=== PATIENT | female | born 1980 | race African-American/Black ===

== ENCOUNTER 2016-10-21 13:43 | Observation (INO) | payer MEDICAID ==
[~2016-10-21] VITALS: Ht 144.8 cm; Wt 56.7 kg
[2016-10-21 14:55] LABS: Basophils # (auto) 0 uL; Basophils % (auto) 0.1 % (0.0-2.0); CONDITION AutoValidated; Eosinophils # (auto) 0.1 uL; Eosinophils % (auto) 0.4 % (0.0-7.0); Hematocrit 43.6 % (36.0-46.0); Hemoglobin 14.7 g/dL (12.2-16.2); Lymphocytes # (auto) 1.5 uL; Lymphocytes % (auto) 10.8 % (10.0-50.0); Mean Corpuscular Hemoglobin 30.1 pg (28.0-32.0); Mean Corpuscular Hgb Conc. 33.8 g/dL (32.0-36.0); Mean Corpuscular Volume 89.1 fL (80.0-100.0); Mean Platelet Volume 7.6 fL (7.4-10.4); Monocytes # (auto) 0.6 uL; Monocytes % (auto) 4.5 % (0.0-12.0); Neutrophils # (auto) 11.9 uL; Neutrophils % (auto) 84.2 % (37.0-80.0); Platelet Count (auto) 325 10^3/uL (140-450); Red Cell Distribution Width 13.6 % (11.6-16.0); White Blood Cell 14.1 10^3/uL (4.4-10.8)
[2016-10-21 15:22] LABS: Albumin 4.3 g/dL (3.4-5.0); BUN/Creatinine Ratio 15.1; Bilirubin, Total 0.5 mg/dL (0.2-1.0); Calcium 8.9 mg/dL (8.5-10.1); Potassium 3.7 mmol/L (3.5-5.1); Total Protein 7.7 g/dL (6.4-8.2)
[2016-10-21 16:25] LABS: Urine Bilirubin Negative (Negative); Urine Color Yellow (Yellow); Urine Glucose Normal (Normal); Urine Ketone TRACE (Negative); Urine Mucus FEW (None Seen); Urine Nitrite Negative (Negative); Urine RBC 5 /hpf (0 - 4); Urine Squamous Epithelial Cell FEW /hpf (<5); Urine Urobilinogen Normal (Negative)
[2016-10-21 16:26] LABS: Urine Blood 2+ /uL (Negative)
[2016-10-21] MEDS ORDERED: SODIUM CHLORIDE 0.9% 1,000 ML IVB ONE (16:37)
[2016-10-21 17:04] LABS: INR 0.99 (0.9-1.15); Partial Thromboplastin Time 25.9 sec (22.64-33.71); Prothrombin Time 10.8 sec (9.37-12.3)
[2016-10-21] MEDS ORDERED: HYDROcodone-ACET 5/325MG TAB PO ONE (20:15)
[2016-10-21 21:27] VITALS: BP 154/91
== END 2016-10-21 21:48 | disposition home or self-care (01) | DRG 53 ==
LOC: EDBD 13:43 → ER 13:45 → OVERFLOW 16:39 → ER 21:43
PROVIDERS: ADMIT Family Medicine; ATTEND Family Medicine
DX: G40.909 Epilepsy, unspecified, not intractable, without status epilepticus (principal); I10 Essential (primary) hypertension; F41.9 Anxiety disorder, unspecified; R51 Headache; Z82.49 Family history of ischemic heart disease and other diseases of the circulatory system; Z90.49 Acquired absence of other specified parts of digestive tract
CPT/HCPCS: 36415; 70450; 80053; 80185; 80307; 81001; 81025; 83735; 85025; 85610; 85730; 96360; 99285; G0378; J7030

== ENCOUNTER 2018-06-09 16:35 | Emergency (ER) | payer MEDICAID ==
[~2018-06-09] VITALS: Ht 144.8 cm; Wt 68.0 kg
[2018-06-09 17:22] LABS: Basophils # (auto) 0 uL; Basophils % (auto) 0.4 % (0.0-2.0); Eosinophils # (auto) 0.1 uL; Eosinophils % (auto) 0.8 % (0.0-7.0); Hematocrit 41.5 % (36.0-46.0); Hemoglobin 13.8 g/dL (12.2-16.2); Lymphocytes # (auto) 1.6 uL; Mean Corpuscular Hemoglobin 29.9 pg (28.0-32.0); Mean Corpuscular Hgb Conc. 33.3 g/dL (32.0-36.0); Mean Corpuscular Volume 89.7 fL (80.0-100.0); Monocytes # (auto) 0.6 uL; Monocytes % (auto) 4.7 % (0.0-12.0); Neutrophils # (auto) 9.9 uL; Neutrophils % (auto) 81.1 % (37.0-80.0); Nucleated Red Blood Cells % 0.1 %; Platelet Count (auto) 298 10^3/uL (140-450); Red Blood Cells 4.63 10^6/uL (4.0-5.20); Red Cell Distribution Width 14.3 % (11.8-14.3); White Blood Cell 12.2 10^3/uL (4.4-10.8)
[2018-06-09 17:31] LABS: Urine Bacteria FEW /hpf (None Seen); Urine Blood TRACE /uL (Negative); Urine Mucus FEW (None Seen); Urine WBC <1 /hpf (0 - 5)
[2018-06-09 17:34] LABS: Albumin 4.3 g/dL (3.4-5.0); Calcium 9.3 mg/dL (8.5-10.1); Potassium 4.2 mmol/L (3.5-5.1)
[2018-06-09 17:38] LABS: BUN/Creatinine Ratio 10.1; Bilirubin, Total 0.4 mg/dL (0.2-1.0); Total Protein 7.9 g/dL (6.4-8.2)
[2018-06-09] MEDS ORDERED: MORPHINE SULFATE 4 MG/ML SYR/VIAL IV ONE (19:30)
[2018-06-09] MEDS ORDERED: ONDANSETRON HCL 4 MG/2 ML VIAL IV ONE (19:30)
[2018-06-09 20:46] VITALS: BP 151/88
== END 2018-06-09 21:36 | disposition home or self-care (01) ==
LOC: ER 16:40
DX: S00.83XA Contusion of other part of head, initial encounter (principal); R51 Headache; I10 Essential (primary) hypertension; F41.9 Anxiety disorder, unspecified; G40.909 Epilepsy, unspecified, not intractable, without status epilepticus; W22.01XA Walked into wall, initial encounter; Y93.89 Activity, other specified; Y92.89 Other specified places as the place of occurrence of the external cause; Y99.8 Other external cause status
CPT/HCPCS: 36415; 70450; 80053; 81001; 81025; 82962; 85025; 96374; 96375; 99284; J2270; J2405

== ENCOUNTER 2019-06-25 18:25 | Emergency (ER) | payer MEDICAID ==
[~2019-06-25] VITALS: Ht 144.8 cm; Wt 59.4 kg
[2019-06-25 19:33] LABS: Basophils # (auto) 0.1 uL; Basophils % (auto) 0.6 % (0.0-2.0); Eosinophils # (auto) 0.2 uL; Eosinophils % (auto) 1.6 % (0.0-7.0); Hematocrit 43.9 % (36.0-46.0); Hemoglobin 14.6 g/dL (12.2-16.2); Lymphocytes # (auto) 3.3 uL; Lymphocytes % (auto) 26.9 % (10.0-50.0); Mean Corpuscular Hemoglobin 30.4 pg (28.0-32.0); Mean Corpuscular Hgb Conc. 33.3 g/dL (32.0-36.0); Mean Corpuscular Volume 91.3 fL (80.0-100.0); Monocytes # (auto) 0.7 uL; Neutrophils % (auto) 64.9 % (37.0-80.0); Nucleated Red Blood Cells % 0.1 %; Platelet Count (auto) 282 10^3/uL (140-450); Red Blood Cells 4.81 10^6/uL (4.0-5.20); Red Cell Distribution Width 13.8 % (11.8-14.3); White Blood Cell 12.3 10^3/uL (4.4-10.8)
[2019-06-25 19:38] LABS: Urine Bacteria NONE SEEN /hpf (None Seen); Urine Blood TRACE /uL (Negative); Urine Mucus FEW (None Seen); Urine Specific Gravity 1.021 (1.001-1.035); Urine WBC 2 /hpf (0 - 5)
[2019-06-25 19:50] LABS: Albumin 4.1 g/dL (3.4-5.0); Potassium 3.8 mmol/L (3.5-5.1)
[2019-06-25 19:53] LABS: BUN/Creatinine Ratio 13.2; Bilirubin, Total 0.4 mg/dL (0.2-1.0); Total Protein 7.5 g/dL (6.4-8.2)
[2019-06-25 21:12] VITALS: BP 139/85
== END 2019-06-25 21:21 | disposition home or self-care (01) ==
LOC: ER 18:25
DX: K57.92 Diverticulitis of intestine, part unspecified, without perforation or abscess without bleeding (principal); I10 Essential (primary) hypertension; Z32.02 Encounter for pregnancy test, result negative; Z90.49 Acquired absence of other specified parts of digestive tract; Z88.8 Allergy status to other drugs, medicaments and biological substances
CPT/HCPCS: 36415; 74176; 80053; 81001; 81025; 85025

== ENCOUNTER → 2019-07-12 | Emergency (ER) | payer MEDICAID ==
[~2019-07-12] VITALS: Ht 144.8 cm; Wt 54.4 kg
[2019-07-12 15:07] LABS: Urine Bacteria FEW /hpf (None Seen); Urine Blood 3+ /uL (Negative); Urine Specific Gravity 1.012 (1.001-1.035); Urine WBC 2 /hpf (0 - 5)
[2019-07-12 15:21] LABS: Basophils # (auto) 0 10 ^3/uL (0-0.2); Basophils % (auto) 0.2 % (0.0-2.0); Eosinophils # (auto) 0.1 10 ^3/uL (0-0.8); Eosinophils % (auto) 1.9 % (0.0-7.0); Hematocrit 40.6 % (36.0-46.0); Hemoglobin 13.9 g/dL (12.2-16.2); Lymphocytes # (auto) 2.4 10 ^3/uL (0.4-5.4); Lymphocytes % (auto) 32.3 % (10.0-50.0); Mean Corpuscular Hemoglobin 30.9 pg (28.0-32.0); Mean Corpuscular Hgb Conc. 34.1 g/dL (32.0-36.0); Mean Corpuscular Volume 90.4 fL (80.0-100.0); Monocytes # (auto) 0.4 10 ^3/uL (0-1.3); Monocytes % (auto) 5.2 % (0.0-12.0); Neutrophils # (auto) 4.4 10 ^3/uL (1.6-8.6); Neutrophils % (auto) 60.4 % (37.0-80.0); Platelet Count (auto) 282 10^3/uL (140-450); Red Blood Cells 4.49 10^6/uL (4.0-5.20); Red Cell Distribution Width 13.5 % (11.8-14.3); White Blood Cell 7.3 10^3/uL (4.4-10.8)
[2019-07-12 15:23] LABS: Alcohol, Urine < 3.0 mg/dL (0-5); Amphetamine Screen, Urine NEGATIVE (NEGATIVE); Barbiturate Scree,Urine NEGATIVE (NEGATIVE); Benzodiazephine Screen, Urine NEGATIVE (NEGATIVE); Cannabinoid Screen, Urine POSITIVE (NEGATIVE); Cocaine Screen, Urine NEGATIVE (NEGATIVE); Phencyclidine Screen, Urine NEGATIVE (NEGATIVE)
[2019-07-12 15:30] LABS: Opiate Scree,Urine NEGATIVE (NEGATIVE)
[2019-07-12 15:40] LABS: Albumin 3.8 g/dL (3.4-5.0); Anion Gap 6 (5-15); Blood Urea Nitrogen 8 mg/dL (7-18); Calcium 8.7 mg/dL (8.5-10.1); Carbon Dioxide 25 mmol/L (21-32); Chloride 109 mmol/L (98-107); Glucose 89 mg/dL (74-106); Potassium 3.6 mmol/L (3.5-5.1); Sodium 140 mmol/L (136-145)
[2019-07-12 15:45] LABS: Alanine Aminotransferase 11 U/L (13-56); Alkaline Phosphatase 49 U/L (45-117); Aspartate Aminotransferase 14 U/L (15-37); BUN/Creatinine Ratio 11.4; Bilirubin, Total 0.3 mg/dL (0.2-1.0); GFR African American 120 mL/min; GFR Non-African American 100 mL/min; Total Protein 7.2 g/dL (6.4-8.2)
[2019-07-12 16:27] VITALS: BP 140/84
== END | disposition home or self-care (01) ==
LOC: ER 14:00
DX: F41.9 Anxiety disorder, unspecified (principal); F12.10 Cannabis abuse, uncomplicated; I10 Essential (primary) hypertension; Z90.49 Acquired absence of other specified parts of digestive tract; Z88.8 Allergy status to other drugs, medicaments and biological substances
CPT/HCPCS: 36415; 70450; 71046; 80053; 80307; 81001; 84443; 84484; 85025; 93005

== ENCOUNTER 2019-10-20 07:12 | Emergency (ER) | payer MEDICAID ==
[~2019-10-20] VITALS: Ht 144.8 cm; Wt 54.4 kg
[2019-10-20] MEDS ORDERED: HYDROcodone-ACET 10/325MG TAB PO ONE (07:45)
[2019-10-20 08:00] LABS: Basophils # (auto) 0 10 ^3/uL (0-0.2); Basophils % (auto) 0.2 % (0.0-2.0); Eosinophils # (auto) 0.1 10 ^3/uL (0-0.8); Eosinophils % (auto) 0.4 % (0.0-7.0); Hematocrit 41.9 % (36.0-46.0); Hemoglobin 13.9 g/dL (12.2-16.2); Lymphocytes # (auto) 1.1 10 ^3/uL (0.4-5.4); Lymphocytes % (auto) 7.8 % (10.0-50.0); Mean Corpuscular Hemoglobin 30.1 pg (28.0-32.0); Mean Corpuscular Hgb Conc. 33.1 g/dL (32.0-36.0); Mean Corpuscular Volume 90.9 fL (80.0-100.0); Monocytes # (auto) 0.4 10 ^3/uL (0-1.3); Monocytes % (auto) 3.1 % (0.0-12.0); Neutrophils # (auto) 12.7 10 ^3/uL (1.6-8.6); Neutrophils % (auto) 88.5 % (37.0-80.0); Nucleated Red Blood Cells % 0.1 %; Platelet Count (auto) 260 10^3/uL (140-450); Red Blood Cells 4.61 10^6/uL (4.0-5.20); Red Cell Distribution Width 13.8 % (11.8-14.3); White Blood Cell 14.3 10^3/uL (4.4-10.8)
[2019-10-20 08:21] LABS: Albumin 3.9 g/dL (3.4-5.0); Potassium 4.3 mmol/L (3.5-5.1)
[2019-10-20 08:27] LABS: BUN/Creatinine Ratio 13.9; Bilirubin, Total 0.3 mg/dL (0.2-1.0); Total Protein 7.4 g/dL (6.4-8.2)
[2019-10-20 08:34] LABS: Urine Bacteria FEW /hpf (None Seen); Urine Blood TRACE /uL (Negative); Urine Specific Gravity 1.013 (1.001-1.035); Urine WBC 2 /hpf (0 - 5)
[2019-10-20] MEDS ORDERED: ONDANSETRON HCL 4 MG/2 ML VIAL IV ONE (09:00)
[2019-10-20 09:57] VITALS: BP 124/78
== END 2019-10-20 10:59 | disposition home or self-care (01) ==
LOC: EDBD 07:12 → ER 07:12
DX: G40.909 Epilepsy, unspecified, not intractable, without status epilepticus (principal); F41.9 Anxiety disorder, unspecified; F12.10 Cannabis abuse, uncomplicated; Z90.49 Acquired absence of other specified parts of digestive tract
CPT/HCPCS: 36415; 70450; 80053; 81001; 82542; 85025; 96365; 96375; 99284; J1953; J2405; J7060

== ENCOUNTER 2020-01-19 14:38 | Emergency (ER) | payer MEDICAID ==
[~2020-01-19] VITALS: Ht 147.3 cm; Wt 57.6 kg
[2020-01-19 15:16] VITALS: BP 115/76
[2020-01-19 15:40] LABS: Basophils # (auto) 0 10 ^3/uL (0-0.2); Basophils % (auto) 0.1 % (0.0-2.0); Eosinophils # (auto) 0.1 10 ^3/uL (0-0.8); Hematocrit 40.2 % (36.0-46.0); Hemoglobin 13.2 g/dL (12.2-16.2); Lymphocytes # (auto) 2.3 10 ^3/uL (0.4-5.4); Lymphocytes % (auto) 15.9 % (10.0-50.0); Mean Corpuscular Hemoglobin 29.7 pg (28.0-32.0); Mean Corpuscular Hgb Conc. 32.7 g/dL (32.0-36.0); Mean Corpuscular Volume 90.8 fL (80.0-100.0); Monocytes # (auto) 0.8 10 ^3/uL (0-1.3); Monocytes % (auto) 5.4 % (0.0-12.0); Neutrophils % (auto) 77.6 % (37.0-80.0); Platelet Count (auto) 310 10^3/uL (140-450); Red Blood Cells 4.43 10^6/uL (4.0-5.20); Red Cell Distribution Width 13.2 % (11.8-14.3); White Blood Cell 14.2 10^3/uL (4.4-10.8)
[2020-01-19 15:51] LABS: Albumin 3.9 g/dL (3.4-5.0); BUN/Creatinine Ratio 11.9; Calcium 9.2 mg/dL (8.5-10.1); Potassium 3.8 mmol/L (3.5-5.1)
[2020-01-19 15:53] LABS: Bilirubin, Total 0.4 mg/dL (0.2-1.0); Total Protein 7.4 g/dL (6.4-8.2)
[2020-01-19] MEDS ORDERED: ONDANSETRON HCL 4 MG/2 ML VIAL IV ONE (16:30)
[2020-01-19] MEDS ORDERED: MORPHINE SULFATE 4 MG/ML SYR/VIAL IV ONE (16:30)
[2020-01-19] MEDS ORDERED: MORPHINE SULF INJ 2 MG/ML SYRINGE 1ML IV ONE (17:00)
[2020-01-19 17:10] LABS: Urine Bacteria FEW /hpf (None Seen); Urine Blood Negative /uL (Negative); Urine Specific Gravity 1.009 (1.001-1.035); Urine WBC 1 /hpf (0 - 5)
== END 2020-01-19 17:00 | disposition left against medical advice (07) ==
LOC: ER 14:38
DX: O15.9 Eclampsia, unspecified as to time period (principal); F41.9 Anxiety disorder, unspecified; J45.909 Unspecified asthma, uncomplicated; Z90.49 Acquired absence of other specified parts of digestive tract; Z3A.01 Less than 8 weeks gestation of pregnancy
CPT/HCPCS: 36415; 80053; 81001; 81025; 84702; 85025

== ENCOUNTER 2020-11-12 02:22 | Emergency (ER) | payer MEDICAID ==
[~2020-11-12] VITALS: Ht 152.4 cm; Wt 59.0 kg
[2020-11-12 02:30] VITALS: BP 167/69
== END 2020-11-12 04:21 | disposition left against medical advice (07) ==
LOC: EDBD 02:22 → ER 02:22 → EDUNIT# 02:22 → ER 04:21
DX: S00.93XA Contusion of unspecified part of head, initial encounter (principal); S00.91XA Abrasion of unspecified part of head, initial encounter; R51.9 Headache, unspecified; Z53.21 Procedure and treatment not carried out due to patient leaving prior to being seen by health care provider; Y08.89XA Assault by other specified means, initial encounter; Y93.9 Activity, unspecified; Y92.89 Other specified places as the place of occurrence of the external cause; Y99.8 Other external cause status
CPT/HCPCS: 70450; 72040

== ENCOUNTER 2022-11-28 17:36 | Emergency (ER) | payer MEDICAID ==
[~2022-11-28] VITALS: Ht 144.8 cm; Wt 76.0 kg
[2022-11-28 17:36] VITALS: BP 151/83; PULSE 109; RESP 16; O2SAT 97
[~2022-11-28 17:36] MED LIST: ALBU108A5 IN; CLON1TAB PO; LEVO500T31 PO; METR500T PO; OXCA600T3 PO
== END 2022-11-28 19:47 | disposition left against medical advice (07) ==
LOC: ER 17:36
DX: S09.92XA Unspecified injury of nose, initial encounter (principal); Z53.21 Procedure and treatment not carried out due to patient leaving prior to being seen by health care provider; W22.8XXA Striking against or struck by other objects, initial encounter; Y93.89 Activity, other specified; Y92.89 Other specified places as the place of occurrence of the external cause; Y99.8 Other external cause status
CPT/HCPCS: 70486

== ENCOUNTER 2024-05-25 20:02 | Emergency (ER) | payer MEDICARE, MEDICAID ==
[~2024-05-25] VITALS: Ht 144.8 cm; Wt 78.2 kg
[~2024-05-25 20:02] MED LIST changes: +CLON-1004 PO; -CLON1TAB PO
[2024-05-25] MEDS ORDERED: COROSUS LEFT EAR (21:26)
[2024-05-25] MEDS ORDERED: METH4PAK PO (21:26)
--- NOTE | 2024-05-25 21:26 | ED.PDOC ---
Eye-HPI HPI Comments PT C/O LEFT EARACHE FOR 2 WEEKS WITH DECREASED HEARING. DENIES ANY DRAINAGE. WAS SEEN AT URGENT CARE, GIVEN AN ANTIBIOTIC SHOT ON SUNDAY. PT WAS SEEN PRIOR TO THAT, PRESCRIBED AMOXICILLIN, COMPLETED 5 OF 10 DAYS, LAST DOSE ON SUNDAY. Chief Complaint: Earache Time Seen by MD: 20:15 Primary Care Provider: ROSA Reviewed Notes: Nurses Notes, Medications, Allergies Allergies: Coded Allergies: Medroxyprogesterone (Verified Allergy, Unknown, 04/13/15) Metoclopramide (Verified Allergy, Unknown, 04/13/15) Morphine (Verified Allergy, Unknown, 11/12/20) Home Meds Active Scripts Methylprednisolone (Medrol Dosepak) 4 Mg Elijah, 4 MG PO UD for 6 Days, #21 TAB UAD Prov:SANTANA URIOSTEGUI 05/25/24 Bwarugge-Wnfjkjdir-Br (Otic) (Cortisporin Otic Susp) [address], 4 DROP LEFT EAR TID for 10 Days, #10 ML Prov:SANTANA URIOSTEGUI 05/25/24 Metronidazole (Flagyl) 500 Mg Tab, 500 MG PO TID, #21 MG Prov:CAMILLE HOGAN MD 07/27/21 Levofloxacin (Levaquin) 500 Mg Tab, 500 MG PO DAILY, #7 MG Prov:CAMILLE HOGAN MD 07/27/21 Reported Medications Albuterol Sulfate (Albuterol Sulfate Hfa) 108 Mcg/Act Aer, 108 MCG IN, AER 07/26/21 Clonazepam (Klonopin) 1 Mg Tab, 1 TAB PO, #90 TAB 1 Refill 07/26/21 Oxcarbazepine (Trileptal) 600 Mg Tab, 600 MG PO BID for 30 Days, MG 07/26/21 Mode of Arrival: Ambulatory Past Medical History PAST MEDICAL HISTORY: Anxiety, Asthma, Seizures Surgical History: Cholecystectomy 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 Family History Family History: Reviewed,noncontributory to illness, Family hx of heart deric, Family hx of HTN Social History Smoker: Non-Smoker Alcohol: Occasionally Drugs: Marijuana Lives In: Home Constitutional: denies: chills, diaphoresis, fatigue, fever, malaise, sweats, weakness, others EENTM: reports: ear pain (LEFT ); denies: blurred vision, double vision, ear bleeding, ear discharge, ear drainage, ear ringing, eye pain, eye redness, hearing loss, mouth pain, mouth swelling, nasal discharge, nose bleeding, nose congestion, nose pain, photophobia, tearing, throat pain, throat swelling, voice changes, others Respiratory: denies: cough, hemoptysis, orthopnea, SOB at rest, shortness of breath, SOB with excertion, stridor, wheezing, others Cardiovascular: denies: chest pain, dizzy spells, diaphoresis, Dyspnea on exertion, edema, irregular heart beat, left arm pain, lightheadedness, palpitations, PND, syncope, others Gastrointestinal: denies: abdomen distended, abdominal pain, blood streaked bowels, constipated, diarrhea, dysphagia, difficulty swallowing, hematemesis, melena, nausea, poor appetite, poor fluid intake, rectal bleeding, rectal pain, vomiting, others Genitourinary: denies: abnormal vagina bleeding, burning, dyspareunia, dysuria, flank pain, frequency, hematuria, incontinence, pain, , vagina discharge, urgency, others Neurological: denies: dizziness, fainting, headache, left sided numbness, left sided weakness, numbness, paresthesia, pre-existing deficit, right sided numbness, right sided weakness, seizure, speech problems, tingling, tremors, weakness, others Musculoskeletal: denies: back pain, gout, joint pain, joint swelling, muscle pain, muscle stiffness, neck pain, others Integumetry: denies: bruises, change in color, change in hair/nails, dryness, laceration, lesions, lumps, rash, wounds, others Allergic/Immunocompromised: denies: Difficulty Healing, Frequent Infections, Hives, Itching, others Hematologic/Lymphatic: denies: anemia, blood clots, easy bleeding, easy bruising, swollen glands, others Endocrine: denies: excessive hunger, excessive sweating, excessive thirst, excessive urination, flushing, intolerance to cold, intolerance to heat, unexplained weight gain, unexplained weight loss, others Psychiatric: denies: anxiety, bipolar disorder, depression, hopeless, panic disorder, schizophrenia, sleepless, suicidal, others Physical Exam General Appearance: No Apparent Distress, Normal HEENT: Pharynx Normal, TMs Normal, Other (LEFT EAR CANAL EDEMATOUS HAND ERYTHEMIC. TM WITH NOTED AIR BUBBLES AND FLUID ERYTHEMA OR BULGING. INTACT) Neck: Full Range of Motion, Non-Tender Respiratory: Lungs Clear, No Respiratory Distress, Normal Breath Sounds Cardiovascular: No Murmur, Normal Peripheral Pulses, Regular Rate/Rhythm Breast Exam: Deferred Gastrointestinal: Non Tender, Soft Genitalia: Deferred Pelvic: Deferred Rectal: Deferred Extremities: Normal capillary refill, Normal inspection, Normal range of motion, Non-tender, No pedal edema Musculoskeletal : Apperance: Normal Neurologic: Alert, chemist internship II-XII nml as Tested, No Motor Deficits, Normal Affect, Normal Mood, No Sensory Deficits Cerebellar Function: Normal Reflexes: Normal Skin: Dry, Normal Color, Warm Lymphatic: No Adenopathy Was a procedure done? Was a procedure done?: No EENT DIFF Eye: N/A Ear: Cerumen Impaction, Foreign Body, Otitis Externa, Barotrauma, Otitis Media, Perforation X-Ray, Labs, Meds, VS Vital Signs Date Time Temp Pulse Resp B/P (MAP) Pulse Ox O2 Delivery O2 Flow Rate FiO2 05/25/24 21:40 87 19 99 Room Air 05/25/24 21:40 99.5 87 19 160/94 (116) 99 99.5 05/25/24 20:30 99.5 91 18 167/88 (114) 97 X-Ray, Labs, Meds, VS Comment LIKELY BACTERIAL. LIKELY SECONDARY TO YOUR EUSTACHIAN TUBE DYSFUNCTION. PATIENT GIVEN DECADRON 10 MG IM. START TRIAL OF ANTIBIOTIC DROPS AND MEDROL DOSEPAK. ADVISED TO FOLLOW UP WITH HER PCP FOR CONTINUED SYMPTOMS CONSIDER REFERRAL TO ENT. REST INCREASE P.O. FLUIDS WITH ELECTROLYTES. AVOID UNDER WATER ACTIVITIES WHILE WITH INFECTION. ER RETURN PRECAUTIONS GIVEN PATIENT INDICATED UNDERSTANDING AGREES WITH DISCHARGE CARE PLAN. Time of 1ST Reevaluation: 21:24 Reevaluation 1ST: Improved Patient Education/Counseling: Diagnosis, Treatment, Prognosis, Need For Follow Up Family Education/Counseling: Diagnosis, Treatment, Prognosis, Need For Follow Up Departure 1 Departure Time of Disposition: 21:24 Impression: Primary Impression: Otitis externa Qualified Codes: H60.62 - Unspecified chronic otitis externa, left ear Disposition: HOME / SELF CARE / HOMELESS Condition: Stable e-Prescriptions Methylprednisolone (Medrol Dosepak) 4 Mg Elijah 4 MG PO UD for 6 Days, #21 TAB UAD Prov: SANTANA URIOSTEGUI 05/25/24 Osxmmmtk-Lwftnovnu-Yf (Otic) (Cortisporin Otic Susp) [address] 4 DROP LEFT EAR TID for 10 Days, #10 ML Prov: SANTANA URIOSTEGUI 05/25/24 Discharged With: Spouse Critical Care Note Critical Care Time?: No Stability Stability form required: No SANTANA URIOSTEGUI May 25, 2024 21:26
[2024-05-25 21:40] VITALS: BP 160/94; PULSE 87; RESP 19; TEMP 99.5; O2SAT 99
[2024-05-25] MEDS: DexAMETHasone SOD PHOS 10MG/1ML VIAL INJ IM ONE (21:59)
[2024-05-25] MEDS: KETOROLAC TROMETH 60MG/2ML VIAL IM ONE (21:59)
== END 2024-05-25 22:20 | disposition home or self-care (01) ==
LOC: ER 20:02
DX: H60.92 Unspecified otitis externa, left ear (principal); F41.9 Anxiety disorder, unspecified; J45.909 Unspecified asthma, uncomplicated; F15.90 Other stimulant use, unspecified, uncomplicated; Z90.49 Acquired absence of other specified parts of digestive tract; Z88.5 Allergy status to narcotic agent; Z79.899 Other long term (current) drug therapy
CPT/HCPCS: 96372; 99284; J1100; J1885

== ENCOUNTER 2024-06-24 11:25 | Emergency (ER) | payer MEDICARE, MEDICAID ==
[~2024-06-24] VITALS: Ht 157.5 cm; Wt 72.7 kg
[2024-06-24 13:33] VITALS: BP 135/98; PULSE 89; RESP 16; TEMP 98.4; O2SAT 100
[2024-06-24] MEDS ORDERED: CEPH500C PO (14:28)
[2024-06-24] MEDS ORDERED: IBUP1TAB5 PO (14:28)
--- NOTE | 2024-06-24 14:28 | ED.PDOC ---
HPI Comments 44 year old presents for laceration to the L knee after mechanical fall Lost her footing chasing her cat. Sustained lac to the left knee lac 7 cm Chief Complaint: Laceration Time Seen by MD: 11:59 Primary Care Provider: ROSA Reviewed Notes: Nurses Notes, Medications, Allergies Allergies: Coded Allergies: Medroxyprogesterone (Verified Allergy, Unknown, 04/13/15) Metoclopramide (Verified Allergy, Unknown, 04/13/15) Morphine (Verified Allergy, Unknown, 11/12/20) Home Meds Active Scripts Ibuprofen Micronized (Ibuprofen) 600 Mg Tab, 600 MG PO TID for 10 Days, #30 TAB 0 Refills Prov:FATOU MANLEY AUTOMATIC EMBROIDERY MACHINE TENDER 06/24/24 Cephalexin Monohydrate (Cephalexin) 500 Mg Cap, 1 CAP PO QID for 5 Days, #20 CAP 0 Refills Prov:FATOU MANLEY AUTOMATIC EMBROIDERY MACHINE TENDER 06/24/24 Metronidazole (Flagyl) 500 Mg Tab, 500 MG PO TID, #21 MG Prov:CAMILLE HOGAN MD 07/27/21 Levofloxacin (Levaquin) 500 Mg Tab, 500 MG PO DAILY, #7 MG Prov:CAMILLE HOGAN MD 07/27/21 Reported Medications Albuterol Sulfate (Albuterol Sulfate Hfa) 108 Mcg/Act Aer, 108 MCG IN, AER 07/26/21 Clonazepam (Klonopin) 1 Mg Tab, 1 TAB PO, #90 TAB 1 Refill 07/26/21 Oxcarbazepine (Trileptal) 600 Mg Tab, 600 MG PO BID for 30 Days, MG 07/26/21 Information Source: Patient Mode of Arrival: EMS Complexity: Intermediate Laceration Length (cm): 7 Past Medical History PAST MEDICAL HISTORY: Anxiety, Asthma, Seizures Surgical History: Cholecystectomy 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 Family History Family History: Reviewed,noncontributory to illness, Family hx of heart deric, Family hx of HTN Social History Smoker: Non-Smoker Alcohol: Occasionally Drugs: Marijuana Lives In: Home All Other Systems: Reviewed and Negative (per hpi) Physical Exam General Appearance: No Apparent Distress, Normal HEENT: Normal ENT Inspection, Pharynx Normal, TMs Normal Neck: Full Range of Motion, Non-Tender, Normal, Normal Inspection Respiratory: Chest Non-Tender, Lungs Clear, No Accessory Muscle Use, No Respiratory Distress, Normal Breath Sounds Cardiovascular: No Edema, No JVD, No Murmur, No Gallop, Normal Peripheral Pulses, Regular Rate/Rhythm Breast Exam: Deferred Gastrointestinal: No Organomegaly, Non Tender, No Pulsatile Mass, Normal Bowel Sounds, Soft Genitalia: Deferred Pelvic: Deferred Rectal: Deferred Extremities: No calf tenderness, Normal capillary refill, Normal inspection, Normal range of motion, Non-tender, No pedal edema Musculoskeletal : Apperance: Normal Neurologic: Alert, staff counsel II-XII nml as Tested, No Motor Deficits, Normal Affect, Normal Mood, No Sensory Deficits Cerebellar Function: Normal Reflexes: Normal Skin: Dry, Normal Color, Warm Lymphatic: No Adenopathy Was a procedure done? Was a procedure done?: Yes Sedation Sedation?: No Laceration Repair : Location left knee Length 7 Anesthetic: Lidocaine Laceration Repair Prep: Saline, Betadine Laceration Repair Wound Comple: epidermis/dermis repair Laceration Repair: Size (4-0), Simple, Bacitracin, Non-adherent gauze, Gauze Informed consent obtained: Yes Risks, benefits, and alternati: Yes Differential diagnosis Generic Laceration: Abrasion/Contusion, Laceration, Avulsion X-Ray, Labs, Meds, VS Vital Signs Date Time Temp Pulse Resp B/P (MAP) Pulse Ox O2 Delivery O2 Flow Rate FiO2 06/24/24 13:33 98.4 89 16 135/98 (110) 100 98.4 06/24/24 13:33 89 16 100 Room Air 06/24/24 11:27 98.4 94 16 155/104 (121) 100 Current Medications Medications (Trade) Dose Ordered Sig/Osiris Route Start Time Stop Time Status Last Admin Acetaminophen/ Hydrocodone Bitart (Empire 5/325MG Tab) 1 tab ONCE ONCE PO 06/24/24 14:30 06/24/24 14:37 DC 06/24/24 14:40 Neomycin/ Polymyxin/ Bacitracin (Triple Antibiotic) 1 applic ONCE ONCE TOP 06/24/24 14:45 06/24/24 14:47 DC 06/24/24 14:41 X-Ray, Labs, Meds, VS Comment The skin edges of the laceration were infiltrated with 1% lidocaine The skin surrounding the laceration was scrubbed with Betadine soaked sterile gauze The laceration was irrigated under high-pressure with a 60 mL syringe A total of 1L sterile water was used. Including diluted Betadine solution The laceration was prepped in sterile fashion with sterile drapes On examination under direct light, there was no foreign body seen The laceration was repaired in simple interrupted technique There was no continuing bleeding on repair. There were no complications related to repair Antibiotics rx * Tetanus updated Education and follow-up instructions provided Wound check in 2 days Return sooner for signs of infection such as fevers, increased pain, redness, green, yellow discharge, or any concerns Keep wound dry for 24 to 48 hours; dry dressing may be changed Protect from sunlight and keep area clean and dry. Use soap and water if it gets dirty High risk of possible scarring and education provided on ways to minimize scarring after wound heals Also provided education on possible complications post procedure including wound dehiscence, infection, etc. Time of 1ST Reevaluation: 14:00 Reevaluation 1ST: Improved Patient Education/Counseling: Diagnosis, Treatment Family Education/Counseling: Diagnosis, Treatment Departure 1 Departure Time of Disposition: 14:26 Impression: Primary Impression: Knee laceration Qualified Codes: S81.012A - Laceration without foreign body, left knee, initial encounter Disposition: HOME / SELF CARE / HOMELESS Condition: Stable e-Prescriptions Ibuprofen Micronized (Ibuprofen) 600 Mg Tab 600 MG PO TID for 10 Days, #30 TAB 0 Refills Prov: FATOU MANLEY NP 06/24/24 Cephalexin Monohydrate (Cephalexin) 500 Mg Cap 1 CAP PO QID for 5 Days, #20 CAP 0 Refills Prov: FATOU MANLEY NP 06/24/24 Critical Care Note Critical Care Time?: No Stability Stability form required: No Heart Score Heart Score: Heart Score Response (Comments) Value History N/A 0 EKG N/A 0 Age N/A 0 Risk Factors N/A 0 Troponin N/A 0 Total 0 FATOU MANLEY NP Jun 24, 2024 14:28
[2024-06-24] MEDS ORDERED: NEOMYCIN-BACITRACIN-POLYM UNITDOSE PKG TOP OINT TOP ONE (14:30)
[2024-06-24] MEDS: HYDROcodone-ACET 5/325MG TAB PO ONE (14:40)
[2024-06-24] MEDS: NEOMYCIN-BACITRACIN-POLYM UNITDOSE PKG TOP OINT TOP ONE (14:41)
== END 2024-06-24 14:47 | disposition home or self-care (01) ==
LOC: EDBD 11:25 → ER 11:34
DX: S81.012A Laceration without foreign body, left knee, initial encounter (principal); J45.909 Unspecified asthma, uncomplicated; F41.9 Anxiety disorder, unspecified; Z90.49 Acquired absence of other specified parts of digestive tract; Z79.1 Long term (current) use of non-steroidal anti-inflammatories (NSAID); Z79.899 Other long term (current) drug therapy; Z88.5 Allergy status to narcotic agent; W18.39XA Other fall on same level, initial encounter; Y93.89 Activity, other specified; Y92.89 Other specified places as the place of occurrence of the external cause; Y99.8 Other external cause status
CPT/HCPCS: 12002; 99283; J2003